=== PATIENT | female | born 1980 | race Hispanic/Latino ===

== ENCOUNTER 2023-02-12 06:42 | Emergency (ER) | payer OTHER ==
[2023-02-12] MEDS ORDERED: Ketorolac Tromethamine 30 MG/ML VIAL ONE ×2 (09:24→12:32)
[2023-02-12] MEDS ORDERED: LevoFLOXacin 500 mg/D5W 100 ML BAG ONE (09:25)
[2023-02-12] MEDS ORDERED: Scopolamine 1.5 mg/72 hour Patch TOP SCH (09:45)
[2023-02-12] MEDS ORDERED: Bupivacaine PF 0.5% 30 ML VIAL ONE (09:46)
[2023-02-12] MEDS ORDERED: Lidocaine 1% PF 5 ML VIAL ONE (11:30)
[2023-02-12] MEDS ORDERED: Ondansetron PF 4 MG/2 ML Vial ONE (11:30)
[2023-02-12] MEDS ORDERED: fentaNYL 50 mcg/mL 1 mL Vial ONE ×2 (11:30→12:14)
[2023-02-12] MEDS ORDERED: PROPOFOL 20 ML ONE (11:30)
[2023-02-12] MEDS ORDERED: Dexamethasone 20 MG/5 ML VIAL ONE (11:30)
[2023-02-12] MEDS ORDERED: Midazolam HCl 2 mg/2 ml Vial ONE (11:30)
[2023-02-12] MEDS ORDERED: Rocuronium Bromide 10 MG/ML (10ML VIAL) ONE (11:31)
[2023-02-12] MEDS ORDERED: Bupivacaine HCl 0.5%/Epinephrine 1:200,000/PF 30 ml Vial ONE ×2 (12:19→12:48)
[2023-02-12] MEDS ORDERED: Glycopyrrolate 0.2 MG/ML 5 ML SYRINGE ONE (12:28)
[2023-02-12] MEDS ORDERED: Meperidine HCl/PF 25 MG/ML VIAL ONE (12:34)
[2023-02-12] MEDS ORDERED: HYDROcodone/Acetaminophen 5/325 mg Tablet ONE (13:44)
[2023-02-12] MEDS ORDERED: Non-Formulary Medication 1 EACH PO PRN (13:44)
[2023-02-12] MEDS ORDERED: Promethazine HCl 25 MG/ML VIAL IM/IV PRN (13:45)
[2023-02-12] MEDS ORDERED: Ondansetron HCl/PF 4 MG/2 ML Vial IVP PRN (13:45)
[2023-02-12] MEDS ORDERED: PACU-Morphine 4MG/ML VIAL SLOW IVP PRN (13:45)
[2023-02-12] MEDS ORDERED: HYDROcodone/Acetaminophen 5/325 mg Tablet PO PRN ×2 (13:46→13:47)
== END 2023-02-12 11:16 | disposition admitted as inpatient to this hospital (09) ==
LOC: CSHERS 06:42
DX: K81.0 Acute cholecystitis (principal)
CPT/HCPCS: 76705; 88304; 96365; 96366; 96375; C1889; J1100; J1885; J1956; J2175; J2250; J2405; J2704; J3010; S0020